=== PATIENT | female | born 1980 | race Caucasian/White ===

== ENCOUNTER 2018-12-23 16:27 | Outpatient (CLI) | payer OTHER ==
--- NOTE | 2018-12-23 17:25 | Non Stress Test Report ---
Non Stress Test Datetime Report Generated by CPN: 12/23/2018 17:25 DEMOGRAPHIC EGA NST: 35.4 INDICATION Indication for Study: Ordered by Provider; Other Indication for Study (NST) Other: repeat NST AMA from office MONITORING Monitor Explained: Monitor Explained; Test Explained; Patient Verbalized Understanding Time on Monitor: 12/23/2018 16:36 Time off Monitor: 12/23/2018 16:57 NST Duration: 21 NST INTERVENTIONS NST Interventions: PO Hydration Physician Notified NST: Dr Clark BABY A: [id number] BABY A Movement : Present Contraction Frequency : irregular FHR Baseline : 140 Accelerations : 15X15 Decelerations : None Variability : Moderate 6-25bpm NST Review: Meets Criteria for Reactive NST NST Review and Verified By : D Bellavance RN NST Results: Reactive NST REPORT Report Trigger: Send Report
== END 2018-12-23 17:00 | disposition home or self-care (01) ==
LOC: LC 16:27
PROVIDERS: ATTEND Obstetrics & Gynecology
PROC: 4A1HXCZ Monitoring of Products of Conception, Cardiac Rate, External Approach (ICD-10-PCS; principal; 2018-12-23)
DX: O26.893 Other specified pregnancy related conditions, third trimester (principal); Z3A.35 35 weeks gestation of pregnancy
CPT/HCPCS: 59025

== ENCOUNTER 2019-01-12 20:09 | Inpatient (IN) | payer OTHER ==
[2019-01-12] MEDS ORDERED: RINGERS SOLUTION,LACTATED 1,000 ML IV PRN (21:20)
[2019-01-12] MEDS ORDERED: OXYTOCIN/NORMAL SALINE 20 UNIT/1,000 ML RTUINJ ONE (21:38)
[2019-01-12] MEDS ORDERED: OXYTOCIN 10 UNIT/ML VIAL ONE (21:38)
[2019-01-12] MEDS ORDERED: LIDOCAINE 1% INJ-PF (10 MG/ML) 30 ML SDV ONE (21:38)
[2019-01-12] MEDS ORDERED: MISOPROSTOL 0.2 MG TABLET ONE (21:38)
[2019-01-12 22:05] LABS: ABSOLUTE EOSINOPHILS # (AUTO) 0.2 10^3/uL (0.0-0.6); ABSOLUTE LYMPHOCYTES (AUTO) 1.7 10^3/uL (0.5-4.7); ABSOLUTE MONOCYTES (AUTO) 0.9 10^3/uL (0.1-1.4); ABSOLUTE NEUT (AUTO) 6.4 10^3/uL (1.7-8.2); BASOPHILS % (AUTO) 0.3 % (0-2); EOSINOPHILS % (AUTO) 1.7 % (0-6); HEMATOCRIT 39.9 % (36.0-47.0); HEMOGLOBIN 13.7 g/dL (12.0-15.5); LYMPHOCYTES % (AUTO) 18.5 % (13-45); MEAN CORPUSCULAR HEMOGLOBIN 28.5 pg (27.0-33.4); MEAN CORPUSCULAR HGB CONC 34.2 g/dL (32.0-36.0); MEAN CORPUSCULAR VOLUME 84 fl (80-97); MONOCYTES % (AUTO) 10.1 % (3-13); PLATELET COUNT 196 10^3/uL (150-450); RED BLOOD COUNT 4.78 10^6/uL (3.72-5.28); RED CELL DISTRIBUTION WIDTH 14.7 % (11.5-14.0); SEGMENTED NEUTROPHILS % (AUTO) 69.4 % (42-78); TOTAL CELLS COUNTED % (AUTO) 100 %; WHITE BLOOD COUNT 9.3 10^3/uL (4.0-10.5)
[2019-01-12 22:16] LABS: APPEARANCE,URINE CLEAR; BILIRUBIN,URINE NEGATIVE (NEGATIVE); COLOR,URINE COLORLESS; GLUCOSE, URINE NEGATIVE (NEGATIVE); KETONES,URINE NEGATIVE (NEGATIVE); LEUKOCYTE ESTERASE,URINE NEGATIVE (NEGATIVE); NITRITE,URINE NEGATIVE (NEGATIVE); PROTEIN,URINE NEGATIVE (NEGATIVE); URINE SPECIFIC GRAVITY 1.002; UROBILINOGEN,URINE NEGATIVE mg/dL (<2.0)
[2019-01-12 22:36] LABS: URINE AMPHETAMINES SCREEN NEGATIVE; URINE BARBITURATES SCREEN NEGATIVE; URINE BENZODIAZEPINES SCREEN NEGATIVE; URINE COCAINE SCREEN NEGATIVE; URINE MARIJUANA (THC) SCREEN NEGATIVE; URINE METHADONE SCREEN NEGATIVE; URINE PHENCYCLIDINE SCREEN NEGATIVE
--- NOTE | 2019-01-13 01:13 | Admission Physical ---
Datetime Report Generated by CPN: 01/13/2019 01:13 CURRENT ADMISSION Chief Complaint: Uterine Contractions; Suspected Ruptured Membranes Chief Complaint Other: "My water broke at 8:00 tonight" Indication for Induction: Not Applicable Admit Impression : Term, Intrauterine ; No Active Labor; Ruptured Membranes Admit Plan: Admit to Unit; Initiate Labor Induction Protocol ALLERGIES Medication Allergies: No Medication Allergies: No Known Allergies (01/12/2019) Latex: No Latex Allergies OBSTETRICAL HISTORY EDC: 01/23/2019 00:00 : 5 Para: 4 Term: 4 : 0 SAB: 0 IAB: 0 Ectopic: 0 Livin Cesareans: 0 VBACs: 0 Multiple Births: 0 Gestational Diabetes: No Rh Sensitization: No Incompetent Cervix: No FABIO: No Infertility: No ART Treatment: No Uterine Anomaly: No IUGR: No Hx Previous C/S: No Macrosomia: No Hx Loss/Stillborn: No PIH: Yes Hx : No Placenta Previa/Abruption: No Depression/PP Depression: No PTL/PROM: No Post Hemorrhage: Yes Current Procedures: Ultrasound; NST Obstetrical History Comments: G1- 2004, IOL, PreE, G2- 2006, G3- 2009, G4- 2012, IOL, PreE, G5 currnent SEE RECORDS Alcohol: No Marijuana : No Cocaine: No Other Illicit Drugs: No Cigarettes: Never Smoker. [id number] MEDICAL HISTORY Diabetes: No Blood Transfusion: Yes Pulmonary Disease (Asthma, TB): Yes Breast Disease: No Hypertension: No Adult Probation Officer Surgery: No Heart Disease: No Hosp/Surgery: Yes Autoimmune Disorder: No Anesthetic Complications: No Kidney Disease: No Abnormal Pap Smear: No Neuro/Epilepsy: No Psychiatric Disorders: No Other Medical Diseases: No Hepatitis/Liver Disease: No Significant Family History: No Varicosities/Phlebitis: No Trauma/Violence : No Thyroid Dysfunction: No Medical History Comments: Blood transfusion with first Hospitalized only for childbirth x4 INFECTIOUS HISTORY Gonorrhea: No Genital Herpes: No Chlamydia: No Tuberculosis: No Syphilis: No Hepatitis: No HIV/AIDS Exposure: No Rash or Viral Illness: No HPV: No PHYSICAL EXAM General: Normal HEENT: Normal Neurologic: Normal Thyroid: Normal Heart: Normal Lungs: Normal Breast: Normal Back: Normal Abdomen: Normal Genitourinary Exam: Normal Extremities: Normal DTRs: Normal Pelvic Type: Adequate Vital Signs: Reviewed; Within Normal Limits VAGINAL EXAM Dilatation: 1-2 Effacement: thick Station: -3 Contraction Comments: irregular MEMBRANES Pooling: Positive Membranes: Ruptured Amniotic Fluid Color: Clear FETUS A EGA: 38.4 Monitoring: External US FHR- Baseline: 120s Variability: Moderate 6-25bpm Accelerations: 15X15 Decelerations: None FHR Category: Category I Admit Comment: presents to L_D c/o "my water broke" at 2000. It was clear. GBS Negative. History of pre-eclampsia PLANS FOR LABOR AND DELIVERY Labor and Delivery: Plan Pain Management: Natural Feeding Preference: Breast Benefit of Breast Feed Discussed: Yes Circumcision: No INFORMED CONSENT Signature: with User ID: [email or web address]
[2019-01-13] MEDS ORDERED: ACETAMINOPHEN WITH CODEINE #3 TABLET PO PRN ×2 (03:55)
[2019-01-13] MEDS ORDERED: OXYTOCIN/NORMAL SALINE 20 UNIT/1,000 ML RTUINJ IV PRN (03:55)
[2019-01-13] MEDS ORDERED: ZOLPIDEM TARTRATE 5 MG TABLET PO PRN (03:55)
[2019-01-13] MEDS ORDERED: DIBUCAINE 1% OINTMENT 56 GM TP PRN (03:55)
[2019-01-13] MEDS ORDERED: DIPH/PERTUSS(ACELL)/TETANUS VAC/PF 0.5 ML SYR (>=10YO) IM PRN (03:55)
[2019-01-13] MEDS ORDERED: BENZOCAINE/MENTHOL AEROSOL SPRAY 56 ML TOP PRN (03:55)
[2019-01-13] MEDS: IBUPROFEN 800 MG TABLET PO SCH ×3 (06:05→21:13)
[2019-01-13] MEDS: PRENATAL VITAMIN W DHA CAPSULE PO SCH (09:20)
[2019-01-13] MEDS: FERROUS SULFATE 325 MG TABLET PO SCH ×2 (09:20→18:22)
[2019-01-13] MEDS: SENNOSIDES/DOCUSATE 8.6-50 MG 1 EACH TABLET PO SCH (09:20)
[2019-01-13] MEDS: DOCUSATE SODIUM 100 MG CAPSULE PO SCH ×2 (09:20→18:22)
[2019-01-14] MEDS: IBUPROFEN 800 MG TABLET PO SCH ×2 (06:02→15:47)
[2019-01-14 07:30] LABS: HEMATOCRIT 38.5 % (36.0-47.0); MEAN CORPUSCULAR HEMOGLOBIN 28.2 pg (27.0-33.4); MEAN CORPUSCULAR HGB CONC 33.7 g/dL (32.0-36.0); MEAN CORPUSCULAR VOLUME 84 fl (80-97); PLATELET COUNT 183 10^3/uL (150-450); RED CELL DISTRIBUTION WIDTH 15.1 % (11.5-14.0); WHITE BLOOD COUNT 10.4 10^3/uL (4.0-10.5)
[2019-01-14] MEDS: DOCUSATE SODIUM 100 MG CAPSULE PO SCH (09:28)
[2019-01-14] MEDS: PRENATAL VITAMIN W DHA CAPSULE PO SCH (09:28)
[2019-01-14] MEDS: FERROUS SULFATE 325 MG TABLET PO SCH (09:29)
[2019-01-14] MEDS: SENNOSIDES/DOCUSATE 8.6-50 MG 1 EACH TABLET PO SCH (09:29)
[2019-01-14 09:56] VITALS: BP 123/74
--- NOTE | 2019-01-14 10:11 | PDOC PROGRESS REPORT ---
Subjective-OB Progress Note for:: 01/14/19 Subjective: reports bleeding slowing, pain controlled with current meds, denies needs. wants to go home today if baby discharged Physical Exam (OB) Vital Signs: Temp Pulse Resp BP Pulse Ox 97.8 F 107 H 18 123/74 98 01/14/19 09:00 01/14/19 09:00 01/14/19 09:00 01/14/19 09:00 01/14/19 09:00 Intake & Output 01/13/19 01/14/19 01/15/19 06:59 06:59 06:59 Weight 105 kg - Abdomen Description: Soft Hernia Present: Yes Fundal Description: Firm, Midline Fundal Height: u/u - u/2 - Abdominal Distension: No distension Tenderness: Nontender - Extremities Lower extremities: Susana's sign - neg Calf: Normal, Nontender Objective-Diagnostic Laboratory: 01/14/19 07:02 01/14/19 07:02 WBC 10.4 RBC 4.60 Hgb 13.0 Hct 38.5 MCV 84 MCH 28.2 MCHC 33.7 RDW 15.1 H Plt Count 183 Assessment and Plan(PN) - Assessment and Plan (1) Grand multiparity Is this a current diagnosis for this admission?: Yes (2) Normal vaginal delivery Is this a current diagnosis for this admission?: Yes - Time Spent with Patient Time with patient: Less than 15 minutes Medications reviewed and adjusted accordingly: Yes - Disposition Anticipated Discharge: Home Within: within 24 hours
--- NOTE | 2019-01-14 18:43 | PDOC DISCHARGE SUMMARY ---
Final Diagnosis Discharge Date: 01/14/19 - Final Diagnosis (1) Grand multiparity Is this a current diagnosis for this admission?: Yes (2) Normal vaginal delivery Is this a current diagnosis for this admission?: Yes Discharge Data - Discharge Medication Home Medications: No.25/Iron/FA #6/Dha [Prena1 Softgel] 1 cap PO DAILY 01/10/13 Ibuprofen [Motrin 800 mg Tablet] 800 mg PO Q8 tablet 01/14/19 Procedures: NST Intrapartum Procedure(s): Spontaneous Vaginal Delivery - Diagnosis Test Laboratory: Temp Pulse Resp BP Pulse Ox 97.8 F 107 H 18 123/74 98 01/14/19 09:00 01/14/19 09:00 01/14/19 09:00 01/14/19 09:00 01/14/19 09:00 01/12/19 01/12/19 01/14/19 21:37 22:00 07:02 RBC 4.78 4.60 Hgb 13.7 13.0 Hct 39.9 38.5 Urine Opiates Screen NEGATIVE - Discharge information/Instructions Discharge Activity: Balance Activity w/Rest, Pelvic Rest Discharge Diet: Regular Disposition: HOME, SELF-CARE Follow up with: [facility] in: 4, Weeks
--- NOTE | 2019-01-18 16:56 | Delivery Summary ---
Del Sum A-C Datetime Report Generated by CPN: 01/18/2019 16:56 DELIVERY PERSONNEL DELIVERY PERSONNEL: [id number] Delivery Doctor:: Alysia Sal MD Labor and Delivery Nurse:: Minna Joshi RNclinical evaluator Nurse:: LUIS Rao News Video Editor/FEED MILL SUPERVISOR: Jaclyn Rajat MATERNAL INFORMATION Delivery Anesthesia: None Medications After Delivery: Pitocin Drip 20 Units/1000ml NSS Estimated Blood Loss (ml): 100 ml Delivery QBL: 100 Maternal Complications: None Provider Comments: of a viable male at 0324 w/an DIONNA presentation; APGARS 9, 9; no lacs LABOR SUMMARY EDC: 01/23/2019 00:00 No. Babies in Womb: 1 Attempted: No Labor Anesthesia: None LABOR INFORMATION Reason for Induction: Not Applicable Onset of Labor: 01/12/2019 20:37 Complete Dilatation: 01/13/2019 03:15 Oxytocin: N/A Group B Beta Strep: neg Antibiotics # of Doses: 0 Steroids Given: None Reason Steroids Not Administered: Not Applicable MEMBRANES Membranes Rupture Method: Spontaneous Rupture of Membranes: 01/12/2019 20:00 Length of Rupture (hr): 7.40 Amniotic Fluid Color: Heavy Meconium Amniotic Fluid Amount: Large Amniotic Fluid Odor: Normal STAGES OF LABOR Stage 1 hr: 6 Stage 1 min: 38 Stage 2 hr: 0 Stage 2 min: 9 Stage 3 hr: 0 Stage 3 min: 23 Total Time in Labor hr: 7 Total Time in Labor min: 10 VAGINAL DELIVERY Episiotomy: None Laceration #1: None Laceration Extension #1: N/A Laceration Repair: Not Applicable Sponge Count Correct: Yes Sharps Count Correct: Yes BABY A INFORMATION Delivery Date/Time: 01/13/2019 03:24 Method of Delivery: Vaginal Born in Route : No : N/A Forceps: N/A Vacuum Extraction: N/A Shoulder Dystocia : No PRESENTATION/POSITION BABY A Presentation: Cephalic Cephalic Presentation: Vertex Vertex Position: Left Occipital Anterior Breech Presentation: N/A PLACENTA INFORMATION BABY A Placenta Delivery Time : 01/13/2019 03:47 Placenta Method of Delivery: Spontaneous Placenta Status: Delivered SCORES BABY A Heart Rate 1 min: >100 bpm Resp Effort 1 min: Good Cry Reflex Irritability 1 min: Cough or Sneeze or Pulls Away Muscle Tone 1 min: Active Motion Color 1 min: Body Ninety Six, Extremities Blue SCORE 1 MIN: 9 Heart Rate 5 min: >100 bpm Resp Effort 5 min: Good Cry Reflex Irritability 5 min: Cough or Sneeze or Pulls Away Muscle Tone 5 min: Active Motion Color 5 min: Body Ninety Six, Extremities Blue SCORE 5 MIN: 9 INFANT INFORMATION BABY A Gestational Age at Delivery: 38.4 Gestational Status: Early Term- 37- 38.6 Weeks Infant Outcome : Liveborn Condition : Stable Infant Sex: Male IDENTIFICATION BABY A Infant Verification Date/Time: 01/13/2019 03:48 ID Band Number: [id number] Mother's Name Verified: Yes RN Verifying Infant: MARTINA Gomez RN WEIGHT/LENGTH BABY A Infant Birthweight (gm): 3777 Infant Weight (lb): 8 Weight (oz): 5 Infant Length (in): 19.00 Length (cm): 48.26 CORD INFORMATION BABY A No. Cord Vessels: 3 Nuchal Cord : N/A Cord Blood Taken: Yes-For Storage (Mom's Blood type +) ASSESSMENT BABY A Skin to Skin: Yes Skin to Skin: Yes Skin to Skin Time (min): 45 BABY B INFORMATION : N/A SIGNATURES Signature: with User ID: [email or web address]
== END 2019-01-14 19:30 | disposition home or self-care (01) | DRG 807 ==
LOC: LC 20:09 → LR 20:47 → 2S 01-13 05:31
PROVIDERS: ADMIT Obstetrics & Gynecology; ATTEND Obstetrics & Gynecology
PROC: 10E0XZZ Delivery of Products of Conception, External Approach (ICD-10-PCS; principal; 2019-01-12)
PROC: 4A1HXCZ Monitoring of Products of Conception, Cardiac Rate, External Approach (ICD-10-PCS; 2019-01-12)
DX: O77.0 Labor and delivery complicated by meconium in amniotic fluid (principal); Z37.0 Single live birth; Z28.20 Immunization not carried out because of patient decision for unspecified reason; Z3A.38 38 weeks gestation of pregnancy
CPT/HCPCS: 36415; 80307; 81005; 85025; 85027; 86592; 86850; 86900; 86901; J2590; J3490